=== PATIENT | female | born 1950 | race Caucasian/White ===

== ENCOUNTER → 2017-05-25 | Day surgery (SDC) | payer OTHER, MEDICARE ==
[2017-05-17 15:36] VITALS: Ht 157.5 cm; Wt 155.0 kg
[~2017-05-25] VITALS: Ht 157.5 cm; Wt 155.0 kg
[~2017-05-25] MED LIST: ACET-1256 PO; ADVIN25/60 INH; AMT25 PO; ATOR-54 PO; AZAT50TA5 PO; CHOL20009 PO; CITA20TA4 PO; FLUT0.15 NAE; FRS/40 PO; GLUCTAB18 PO; INSU1.2I SC; KETAMINE HCL INJ 50 MG/ML 10 ML VIAL ONE; LEVO137T3 PO; LIDOCAINE HCL 2% 2 ML VIAL (20MG/ML) ONE; LOSA1TAB PO; MAGN400T6 PO; MESA0.37 PO; METO1TAB66 PO; MIDAZOLAM HCL 1 MG/ML 2ML VIAL ONE; MIRA100T PO; MULTTAB58 PO; NRN/300 PO; OMEG10007 PO; OXGN; PANT1TAB48 PO; POTA1TAB97 PO; PROPOFOL IV EMULSION 10 MG/ML 20 ML VIAL IV ONE; RQP2 PO; SODIUM CHLORIDE 0.9% 500ML 500 ML IV ONE; SODIUM CHLORIDE 0.9% INJ 10 ML VIAL ONE; VNTHFA/IN INH
--- NOTE | 2017-05-25 10:00 | Endo History and Physical ---
History & Physical Date of Service: May 25, 2017. Chief Complaint: Ulcerative colitis Referring Physician: Jamir Chavez History of Present Illness UC surveillance Past Medical History Diabetes, Arthritis, Asthma, Gastrointestinal Disorder, Reflux, Sleep Apnea, Hypertension, Thyroid Disease, Depression Past Surgical History Hx Cardiac Surgery: No Hx Internal Defibrillator: No Hx Pacemaker: No Hx Abdominal Surgery: No Hx of Implantable Prosthesis: No Hx Post-Op Nausea and Vomiting: No Hx Cancer Surgery: No Hx Thoracic Surgery: No Hx Orthopedic: No Hx Urinary Tract Surgery: No Family History IBD Social History Smoking Status: Never Smoker Hx Substance Use: No Hx Alcohol Use: No Allergies Coded Allergies: Lisinopril (Verified Allergy, Unknown, COUGH, 05/17/17) Current Medications Reported Home Medications Medications Dose Route/Sig Max Daily Dose Days Date Category Dose Instructions Apriso (Mesalamine) 0.375 Gm Cap 4 Cap PO QAM 30 05/17/17 Reported Myrbetriq Er (Mirabegron) 25 Mg Tab 25 Mg PO QAM 05/17/17 Reported Tylenol (Acetaminophen) 500 Mg Tab 2 Tab PO Q4 PRN 05/17/17 Reported Flonase Allergy Relief (Fluticasone Propionate (Nasal)) 50 Mcg/Act Spr 1 [place] WES BID 05/17/17 Reported Citalopram Hydrobromide 20 Mg Tab 1 Tab PO HS 90 05/17/17 Reported Ventolin Hfa (Albuterol) 200 Puffs/13109 Mcg Aers 2-4 Puffs INH Q6H PRN 05/17/17 Reported Lipitor (Atorvastatin) 20 Mg Tab 20 Mg PO HS 05/17/17 Reported Vitamin D (Cholecalciferol) 2,000 Unit Tab 1 Tab PO QAM 02/20/16 Reported Zearing-3 (Fish Oil) 1 Ea Cap 1 Cap PO BID 02/20/16 Reported Osteo Bi-Flex Regular Str (Glucosamine-Chondroitin) 1 Tab Tab 1 Tab PO BID 02/20/16 Reported Toujeo Solostar (Insulin Glargine) 300 Unit/Ml Inj 80 Units SC DAILY 1200 02/20/16 Reported K-Tab (Potassium Chloride) 20 Meq Tab 1 Tab PO BID 02/20/16 Reported Oxygen Gas 3 Liters NA CONT 02/20/16 Reported Mag-Ox (Magnesium Oxide) 400 Mg Tab 400 Mg PO BID 02/20/16 Reported Cozaar (Losartan Potassium) 25 Mg Tab 25 Mg PO QPM 02/20/16 Reported Levothyroxine Sodium 137 Mcg Tab 1 Tab PO QAM 90 02/20/16 Reported Lasix (Furosemide) 40 Mg Tab 40 Mg PO QAM 02/20/16 Reported CAN TAKE AN ADDITIONAL TAB IF WEIGHT GAIN Advair Diskus 250/50 60 Dose (Fluticasone Prop/Salmeterol) 1 Ea Aerp 1 Puff INH BID 02/19/14 Reported Multivitamin (Multiple Vitamin) 1 Tab Tab 1 Tab PO QAM 02/19/14 Reported Toprol Xl (Metoprolol Succinate) 50 Mg Tab 50 Mg PO QAM 02/19/14 Reported Neurontin (Gabapentin) 300 Mg Cap 1 Dose PO TID 02/19/14 Reported ONE TAB AT MORNING, 2 TAB AT LUNCH AND 1 TABLET AT BEDTIME Requip (Ropinirole Hcl) 2 Mg Tab 2 Mg PO HS 02/19/14 Reported Protonix (Pantoprazole) 40 Mg Tab 40 Mg PO BID 02/19/14 Reported Imuran (Azathioprine) 50 Mg Tab 100 Mg PO QAM 02/19/14 Reported Amitriptyline HCl 25 Mg Tab 25 Mg PO HS 02/19/14 Reported Vital Signs Weight (Kilograms): 155 Height (Feet): 5 Height (Inches): 2 Date Time Temp Pulse Resp B/P (MAP) Pulse Ox O2 Delivery O2 Flow Rate FiO2 05/25/17 09:29 36.7 86 20 143/86 (105) 96 Room Air Physical Exam General Appearance: WD/WN, no apparent distress Assessment and Plan colonoscopy today
--- NOTE | 2017-05-25 10:44 | GI REPORT ---
Procedure Date: 05/25/2017 10:01 AM Procedure: Colonoscopy Indications: High risk colon cancer surveillance: Ulcerative pancolitis of 8 (or more) years duration Medicines: Propofol per Anesthesia Complications: No immediate complications. Estimated blood loss: Minimal. Estimated Blood Loss: Estimated blood loss was minimal. Procedure: Pre-Anesthesia Assessment: - Prior to the procedure, a History and Physical was performed, and patient medications, allergies and sensitivities were reviewed. The patient's tolerance of previous anesthesia was reviewed. - The risks and benefits of the procedure and the sedation options and risks were discussed with the patient. All questions were answered and informed consent was obtained. - Patient identification and proposed procedure were verified prior to the procedure by the physician and the nurse. The procedure was verified in the pre-procedure area in the procedure room. - Mental Status Examination: alert and oriented. Airway Examination: normal oropharyngeal airway and neck mobility. Respiratory Examination: clear to auscultation. CV Examination: normal. Abdominal Examination: bowel sounds present, abdomen soft and non-tender, no masses or organomegaly noted. - ASA Grade Assessment: IV - A patient with severe systemic disease that is a constant threat to life. After I obtained informed consent, the scope was passed under direct vision. Throughout the procedure, the patient's blood pressure, pulse, and oxygen saturations were monitored continuously. The scope was introduced through the anus and advanced to the cecum, identified by appendiceal orifice and ileocecal valve. The colonoscopy was performed without difficulty. The patient tolerated the procedure well. The quality of the bowel preparation was good. Findings: The perianal and digital rectal examinations were normal. Pertinent negatives include normal sphincter tone and no palpable rectal lesions. Multiple small and large-mouthed diverticula were found in the sigmoid colon and in the descending colon. Normal mucosa was found in the entire colon. Biopsies were taken with a cold forceps for histology. Verification of patient identification for the specimen was done by the physician and nurse using the patient's name and date. Estimated blood loss was minimal. The retroflexed view of the distal rectum and anal verge was normal and showed no anal or rectal abnormalities. Impression: - Diverticulosis in the sigmoid colon and in the descending colon. - Normal mucosa in the entire examined colon. Biopsied. - The distal rectum and anal verge are normal on retroflexion view. Recommendation: - Await pathology results. - Continue present medications. - Repeat colonoscopy for surveillance based on pathology results. - Return to primary care physician as previously scheduled. - Discharge patient to home. Chrissie Hernandez D.O. Chrissie Hernandez, 05/25/2017 10:44:05 AM This report has been signed electronically. Note Initiated On: 05/25/2017 10:01 AM I attest to the content of the Intraoperative Record and orders documented therein, exceptions below
--- NOTE | 2017-05-25 10:45 | Discharge Instructions ---
Endoscopy Patient Instructions Date / Procedure(s) Performed May 25, 2017. Colonoscopy Allergy Information Coded Allergies: Lisinopril (Unverified Adverse Reaction, Unknown, COUGH, 05/25/17) Discharge Date / Findings May 25, 2017. diverticulosis; quiescent UC Medication Instructions Restart Stopped Medication(s): OK to resume home medications as above Provider Instructions Activity Restrictions - No exercising or heavy lifting for 24 hours. - Do not drink alcohol the day of the procedure. - Do not drive a car or operate machinery until the day after the procedure. - Do not make any important decisions or sign important papers in 24 hours after the procedure. Following Day: - Return to full activity which may include returning to work/school. Diet Start your diet with liquids and light foods (jello, soup, juice, toast). Then eat your usual diet if not nauseated. Treatment For Common After Affects For mild abdominal pain, bloating, or excessive gas: - Rest - Eat lightly - Lie on right side Follow-Up Information Follow-up with Jamir Chavez as scheduled Anesthesia Information What You Should Know You have had a procedure that required some medicine to reduce anxiety and discomfort. This treatment is called moderate sedation. After receiving the treatment, you may be sleepy, but you will be able to breathe on your own. The effects of the treatment may last for several hours. Follow these instructions along with Activity/Diet recommendations noted above: * Do NOT do anything where dizziness or clumsiness would be dangerous. * Rest quietly at home today, then you can be up and about tomorrow. * Have a responsible person stay with you the rest of today. * You may have had an I.V. today. If so, you may take the dressing off later today. Recommendations Call your doctor if: * Trouble breathing * Continuous vomiting for more than 24 hours * Temperature above 101 degrees * Severe abdominal pain or bloating * Pain not relieved by pain medicine ordered * There is increased drainage or redness from any incision * A large amount of rectal bleeding greater than 2-3 tablespoons. (If you had a polyp/s removed or have hemorrhoids, a small amount of blood - from the rectum is to be expected.) * You have any unanswered questions or concerns. IN THE EVENT OF A SERIOUS EMERGENCY, GO TO THE NEAREST EMERGENCY ROOM Your discharge instructions were prepared by provider Chrissie Hernandez. Patient Instructions Signature Page [place] Patient (or Guardian) Signature/Date: I have read and understand the instructions given to me by my caregivers. Caregiver/RN/Doctor Signature/Date: The above-named patient and/or guardian has received patient instructions on this date. + Original Patient Signature Page (only) stays with chart. Please make copy for patient.
[2017-05-25 11:23] VITALS: BP 121/71; PULSE 86; O2SAT 96
--- NOTE | 2017-05-25 12:07 | Anesthesiology Progress Note ---
Anesthesia Post Op Note Date & Time May 25, 2017 at 12:06 Vital Signs Pain Intensity: 0 Vital Signs Past 12 Hours Date Time Temp Pulse Resp B/P (MAP) Pulse Ox O2 Delivery O2 Flow Rate FiO2 05/25/17 11:23 86 20 121/71 (88) 96 Nasal Cannula 3 05/25/17 11:11 86 20 124/70 (88) 97 Nasal Cannula 3 05/25/17 10:56 92 20 109/64 (79) 97 Nasal Cannula 3 05/25/17 10:41 88 20 104/60 (75) 98 Nasal Cannula 05/25/17 09:29 36.7 86 20 143/86 (105) 96 Room Air Notes Mental Status: alert / awake / arousable, participated in evaluation Pt Amnestic to Procedure: Yes Nausea / Vomiting: adequately controlled Pain: adequately controlled Airway Patency, RR, SpO2: stable & adequate BP & HR: stable & adequate Hydration State: stable & adequate Anesthetic Complications: no major complications apparent
== END | disposition home or self-care (01) ==
LOC: C.GI 09:04
PROVIDERS: ATTEND Internal Medicine
DX: K51.90 Ulcerative colitis, unspecified, without complications (principal); K57.30 Diverticulosis of large intestine without perforation or abscess without bleeding; E10.9 Type 1 diabetes mellitus without complications; M19.90 Unspecified osteoarthritis, unspecified site; J45.909 Unspecified asthma, uncomplicated; K21.9 Gastro-esophageal reflux disease without esophagitis; I10 Essential (primary) hypertension; F32.9 Major depressive disorder, single episode, unspecified; G47.33 Obstructive sleep apnea (adult) (pediatric); G25.81 Restless legs syndrome; E03.9 Hypothyroidism, unspecified; Z98.41 Cataract extraction status, right eye; Z98.42 Cataract extraction status, left eye; J96.10 Chronic respiratory failure, unspecified whether with hypoxia or hypercapnia; I50.9 Heart failure, unspecified; E66.8 Other obesity